=== PATIENT | female | born 2000 | race Caucasian/White ===

== ENCOUNTER 2024-12-27 10:02 | Emergency (ER) | payer OTHER, SELFPAY ==
[2024-12-27 10:09] VITALS: BP 152/94
[2024-12-27] MEDS: ZOFRAN ODT (ORALLY DISINTEGRATING) 4 MG PO (10:16)
[2024-12-27 10:30] LABS: % Basophils 0.7 % (0-2); % Eosinophils 0.8 % (0-6); % Immature Granulocytes 0.3 % (0-0.5); % Lymphocytes 22.1 % (20.5-51.1); % Monocytes 5.9 % (1.7-9.3); % Neutrophils 70.2 % (42.2-75.2); Absolute Basophils 0.1 10^3/uL (0-0.2); Absolute Eosinophils 0.1 10^3/uL (0-0.7); Absolute Lymphocytes 1.6 10^3/uL (1.2-3.4); Absolute Monocytes 0.4 10^3/uL (0.1-0.6); Absolute Neutrophils 5.1 10^3/uL (1.4-6.5); Hematocrit 42.2 % (37.0-47.0); Hemoglobin 14.2 g/dL (12.0-16.0); Mean Corp Hgb Conc. 33.6 g/dL (33.0-37.0); Mean Corpuscular Hgb 29.8 pg (27.0-31.0); Mean Corpuscular Volume 88.7 fL (81.0-99.0); Mean Platelet Volume 9.1 fL (7.4-10.4); Nucleated Red Blood Cells % 0 %; Platelet Count 384 10^3/uL (130-400); Red Blood Cell Count 4.76 10^6/uL (4.20-5.40); Red Cell Dist. Width 12.7 % (11.5-14.5); White Blood Cell Count 7.2 10^3/uL (4.8-10.8)
[2024-12-27 10:46] LABS: Urine Albumin 2+ (Neg - Trace); Urine Bilirubin Negative (Negative); Urine Character Clear (Clear); Urine Color Yellow; Urine Glucose Negative (Negative); Urine Ketone Negative (Negative); Urine Leukocyte Negative (Negative); Urine Nitrite Negative (Negative); Urine Occult Blood Negative (Negative); Urine Urobilinogen 1+ (Neg - 1+)
[2024-12-27 10:57] LABS: ALT (SGPT) 19 U/L (0-35); AST (SGOT) 26 U/L (14-36); Albumin 5.2 g/dl (3.5-5.0); Alkaline Phosphatase 85 U/L (38-126); Blood Urea Nitrogen 23 mg/dl (7-17); Calcium 9.8 mg/dl (8.4-10.2); Carbon Dioxide 25 mmol/L (22-30); Chloride 100 mmol/L (98-107); Glucose 101 mg/dl (70-99); Potassium 4.4 mmol/L (3.5-5.1); Sodium 135 mmol/L (135-145); Total Bilirubin 1.1 mg/dl (0.2-1.3); Total Protein 7.5 g/dl (6.3-8.2); eGFR > 60.00
[2024-12-27 11:07] LABS: HCG, Serum Qualitative Screen Negative
[2024-12-27 11:18] LABS: Lipase 83 U/L (23-300)
[2024-12-27 11:21] LABS: Urine Squamous Cell >30 /LPF (Few)
[2024-12-27 11:22] LABS: Urine Red Blood Cell 0-2 /HPF (0-2)
--- NOTE | 2024-12-27 11:48 | ED.GENMED ---
History of Present Illness
General
Chief Complaint: Abdominal Pain
Source: patient
Exam Limitations: none
Time Seen by Provider: 12/27/24 11:39
Nursing documentation reviewed up to this point in time: agreed with
History of Present Illness
History of Present Illness:
The patient is a pleasant 24-year-old female who reports gradual onset of right lower abdominal pain that started 4 days ago. Patient reports that for 3 days it was constant and starting today the pain has come and gone. Patient reports it is
worse when she stands up and sits up straight. It is improved when she bends over. Patient reports mild diarrhea but no constipation. She reports ongoing nausea and occasional vomiting. She denies fever. She denies vaginal bleeding and
discharge. Patient reports her sister had similar symptoms with her appendicitis. Patient denies a past surgical history. Patient states the pain is nearly gone at this time.
Past History
Past History
ED Past Medical History: Asthma (Exercise-induced asthma), GERD and Psychiatric (ADHD, anxiety)
ED Past Surgical History: None
Social History
Tobacco: Non-smoker
Alcohol: Occasional
Drug: None
Personal: Single
Living: with family
Employment: Student
Family History
Family History: Other (Gallstones)
Review of Systems
Review of Systems
Allergies reviewed?: Yes
All Other Systems: ROS reviewed and negative except as documented in HPI and ROS
Constitutional: Reports no symptoms
EENT: Reports no symptoms
Respiratory: Reports no symptoms
Cardiac: Reports no symptoms
ABD/GI: Reports abdominal pain, nausea, vomiting and diarrhea
: Reports no symptoms
Musculoskeletal: Reports no symptoms
Skin: Reports no symptoms
Neurological: Reports no symptoms
Endocrine: Reports no symptoms
Hematologic/Lymphatic: Reports no symptoms
Phy Exam
Physical Exam
Physical Exam:
Physical Exam
General: no apparent distress, not acutely ill. Well appearing, conversational, smiling
Neck: supple. no meningeal signs. normal psoterior pharynx
Heart: s1/s2 regular rate and rhythm, no murmur. equal radial pulses.
Lungs: no acute respiratory distress. clear bilaterally
Abdomen: Soft. Nondistended. Mild right lower quadrant tenderness. No rebound or guarding. No pulsatile mass
Neuro: alert and oriented. no focal neurological deficits
Skin: no rash
Psychiatric: well kept. interactive and cooperative
Extremities: no edema. no calf tenderness. negative homans. good distal pulses
Course
Orders/Labs/Results
Orders:
Orders
12/27/24 10:13
Test Result ONCE
12/27/24 10:14
Ondansetron Orally Disint [Zofran Odt (Orally Disintegrating)] 4 mg .ROUTE .STK-MED ONE
12/27/24 10:15
Ondansetron Orally Disint [Zofran Odt (Orally Disintegrating)] 4 mg PO NOW STA
12/27/24 10:22
Complete Blood Count/With Diff Urgent
Comprehensive Metabolic Panel Urgent
HCG, Serum Qualitative Screen Urgent
Lipase Urgent
Urinalysis Reflex To Culture Urgent
Date Specimen was Collected: 12/27/24
Time Specimen was Collected: 10:13
Urine Microscopic Reflex Cult Urgent
12/27/24 11:47
CT Abd/pelvis W Iv Cont Urgent
Comment:
Reason For Exam: RLQ/R pelvic pain and nausea for 4 days
12/27/24 13:10
Ketorolac [Toradol] 30 mg IV NOW STA
Abnormal Lab Results
12/27/24
10:22
BUN 23 H mg/dl
(7-17)
Glucose 101 H mg/dl
(70-99)
Albumin 5.2 H g/dl
(3.5-5.0)
Urine Albumin (Reflex) 2+ A
(Neg - Trace)
02/14/25 10:22
12/27/24 10:22
Vital Signs
Initial and Last Documented VS:
Initial Vital Signs
Temp Pulse Resp BP Pulse Ox
98.3 F 81 16 152/94 97
12/27/24 10:09 12/27/24 10:09 12/27/24 10:09 12/27/24 10:09 12/27/24 10:09
Last Documented Vital Signs
Temp Pulse Resp BP Pulse Ox
98.3 F 81 16 152/94 97
12/27/24 10:09 12/27/24 10:09 12/27/24 10:09 12/27/24 10:09 12/27/24 10:09
MDM/Problems Addressed
Differential Diagnosis Includes:
Right ovarian cyst, right ovarian cyst rupture, ovarian torsion, acute appendicitis
MDM/Problems Addressed:
Patient presents with acute right lower abdominal pain
Acute Exacerbation and/or Progression of Chronic Illness:
Patient's asthma is under control and no complaints of shortness of breath
*Radiology
Radiology exam reviewed: radiology read reviewed
*Pulse Oximetry
Patient hypoxic: no
*EKG
Interpreted by ED Provider?: NA
*Electrical Electronics Technician Interpretation
Rate: Electrical Electronics Technician- N/A
*Critical Care Note
Total Time (30-74mins, 75-104mins- exclusive of procedures): Not Applicable
Data Reviewed
Source: patient and family
Update Note
Update Note:
Patient continues to look well with minimal pain. CAT scan shows no sign of pelvic fluid or ovarian cyst. Normal appendix is seen on CT. Patient encouraged to take NSAIDs with light diet for discomfort.
ED Attending Note
-
Portions of this chart may have been created with voice recognition software.� Occasional wrong word or��sound alike� substitutions may have occurred due to the inherent limitations of voice recognition software.
Discharge Plan
Departure
Patient Disposition: Home (Routine Discharge)
Date of Disposition: 12/27/24
Time of Disposition: 13:10
Patient with high blood pressure during this ER visit?: Yes
Condition: Good
Covid-19: Not Applicable
Discharge Problem:
Enteritis
Instructions: Abdominal pain in adults - ED discharge instructions, BLOOD PRESSURE
Prescriptions:
No Action
albuterol sulfate [Albuterol Sulfate HFA] 18 GM HFA aerosol inhaler
18 gm inhalation Q6HPRN PRN (Reason: asthma symptoms)
norethin-e.estradiol triphasic [Nortrel (28)] 1 TAB tablet
7 days PO DAILY
ranitidine HCl [Zantac Maximum Strength] 150 MG tablet
150 mg PO PRN PRN (Reason: indigestion)
lisdexamfetamine [Vyvanse] 40 MG capsule
40 mg PO PRN PRN (Reason: when she feels she needs it)
amoxicillin 875 MG tablet
875 mg PO BID Qty: 14 0RF
prednisone 20 MG tablet
40 mg PO DAILY Qty: 8 0RF
lidocaine HCl [Lidocaine Viscous] 180 ML solution
10 ml PO Q4HPRN PRN (Reason: pain) Qty: 180 0RF
Rx Instructions:
Swish and Spit
amoxicillin-pot clavulanate 875-125 mg tablet
1 tab PO BID Qty: 20 0RF
Referrals:
Servando Leigh MD [Family Provider] -
Activity Restrictions/Additional Instructions:
Take 600 mg of Advil every 6-8 hours with crackers for pain.
Interventions
Interventions:
*Risk Screen - Suicide Last Done: 12/27/24 10:09
*General Assessment Last Done: 12/27/24 10:09
*Neglect/Abuse Screening Last Done: 12/27/24 10:09
*ED COVID-19 Vaccine History Last Done: 12/27/24 11:26
FF-[id number]-Sxceinjaog Assessment Last Done: 12/27/24 11:26
Discharge Date and Time
Print Language: FAROESE
[2024-12-27] MEDS: TORADOL 30 MG IV (13:21)
== END 2024-12-27 13:26 | disposition home or self-care (01) ==
LOC: EMR 10:02
PROVIDERS: Emergency Medicine; EMERGENCY PHYSICIAN Emergency Medicine; FAMILY PHYSICIAN Internal Medicine
DX: K52.9 Noninfective gastroenteritis and colitis, unspecified (principal); J45.909 Unspecified asthma, uncomplicated; K21.9 Gastro-esophageal reflux disease without esophagitis; F90.9 Attention-deficit hyperactivity disorder, unspecified type
CPT/HCPCS: 99284; 96374; 74177; 80053; 81003; 81015; 83690; 84703; 85025; Q9967